=== PATIENT | female | born 1975 | race Caucasian/White ===

== ENCOUNTER → 2016-12-30 | Outpatient (REF) | payer BC | LOC: M LAB REF 13:25 | PROVIDERS: ATTEND Physician Assistant | DX: J11.1 Influenza due to unidentified influenza virus with other respiratory manifestations (principal) ==

== ENCOUNTER 2017-05-20 05:51 | Day surgery (SDC) | payer BC ==
[2017-05-20] VITALS (8 sets, daily range): BP systolic 120–139; BP diastolic 52–63
[~2017-05-20] VITALS: Ht 161.3 cm; Wt 112.0 kg
[~2017-05-20 05:51] MED LIST: CYCL10TA PO; IBUP-1022 PO; IBUP1TAB7 PO; IBUP200C10 PO; MAGN1TAB25 PO; PROZ40CA PO; VITA500055 PO; XANA0.5T PO
[2017-05-20] MEDS ORDERED: LR 1,000 ML IV ONE (06:15)
[2017-05-20] MEDS ORDERED: LR 1,000 ML IV SCH ×2 (06:15→11:00)
[2017-05-20 06:24] LABS: MEAN CORPUSCULAR HEMOGLOBIN 28.2 pg (27.0-33.0); MEAN CORPUSCULAR HGB CONC 33.5 g/dl (32.0-36.5); MEAN CORPUSCULAR VOLUME 84.1 fl (80.0-96.0); WHITE BLOOD COUNT 5.9 K/mm3 (4.0-10.0)
[2017-05-20] MEDS ORDERED: MVI PO (06:24)
[2017-05-20 06:41] LABS: CONTROL LINE HCG INT CTR LINE PRESENT
[2017-05-20] MEDS ORDERED: SCOPOLAMINE 1.5 MG TRANSDERMAL TOP ONE (07:00)
[2017-05-20] MEDS ORDERED: SCOPOLAMINE 1.5 MG TRANSDERMAL As Ordered ONE (07:04)
[2017-05-20] MEDS ORDERED: fentaNYL 100 MCG/2 ML INJECTION (J3010) As Ordered ONE (07:05)
[2017-05-20] MEDS ORDERED: MIDAZOLAM INJ 2 MG/2 ML VIAL (J2250) As Ordered ONE (07:05)
[2017-05-20] MEDS ORDERED: ROCURONIUM BROMIDE 50 MG/5 ML VIAL/SYRINGE As Ordered ONE (07:07)
[2017-05-20] MEDS ORDERED: ONDANSETRON 4MG/2ML VIAL (J2405) As Ordered ONE (07:08)
[2017-05-20] MEDS ORDERED: LIDOCAINE 2% INJ 100 MG/5 ML SDV (FOR ANES.) As Ordered ONE (07:08)
[2017-05-20] MEDS ORDERED: dexameTHASONE 4 MG/ML 1ML VIAL (J1100) As Ordered ONE (07:08)
[2017-05-20] MEDS ORDERED: KETOROLAC 60 MG/2 ML VIAL (J1885) As Ordered ONE (07:08)
[2017-05-20] MEDS ORDERED: PROPOFOL 200 MG/20 ML VIAL As Ordered ONE (07:08)
[2017-05-20] MEDS ORDERED: METHYLENE BLUE 0.5% (5MG/ML) 10 ML AMP (PROVAYBLUE)(Q9968 PER 1MG) As Ordered ONE (07:17)
[2017-05-20] MEDS ORDERED: ePHEDrine SULFATE 25 MG/5 ML(5MG/ML) SYRINGE As Ordered ONE (07:53)
[2017-05-20] MEDS ORDERED: HYDROmorphone HCL 2 MG/ML 1ML VIAL (J1170) As Ordered ONE ×2 (08:05→09:06)
[2017-05-20] MEDS: CETIRIZINE (ZyrTEC) 10 MG TAB PO SCH (09:00)
[2017-05-20] MEDS ORDERED: GLYCOPYRROLATE INJ 0.2 MG/ML 2 ML VIAL As Ordered ONE ×2 (09:08→10:03)
[2017-05-20] MEDS ORDERED: NEOSTIGMINE 1MG/ML 5 ML SYRINGE (J2710) As Ordered ONE (09:08)
[2017-05-20] MEDS ORDERED: diphenhydrAMINE INJ 50MG/ML VIAL (J1200) As Ordered ONE (09:35)
[2017-05-20] MEDS ORDERED: fentaNYL 100 MCG/2 ML INJECTION (J3010) IV PRN (11:00)
[2017-05-20] MEDS ORDERED: METOCLOPRAMIDE INJ 10MG/2ML VIAL (J2765) IV PRN (11:00)
[2017-05-20] MEDS ORDERED: NALBUPHINE HCL 10 MG/ML AMP (J2300) IV PRN (11:00)
[2017-05-20] MEDS ORDERED: NALOXONE INJ 0.4 MG/1 ML VIAL (J2310) IV PRN (11:00)
[2017-05-20] MEDS ORDERED: MEPERIDINE INJ 25 MG/ML VIAL (J2175) IV PRN (11:00)
[2017-05-20] MEDS ORDERED: diphenhydrAMINE INJ 50MG/ML VIAL (J1200) IV PRN (11:00)
[2017-05-20] MEDS ORDERED: ONDANSETRON 4MG/2ML VIAL (J2405) IV PRN (11:00)
[2017-05-20] MEDS ORDERED: NORCO, ANEXSIA 5/325MG TABLET (HYDROcodone/ACETAMINOPHEN) PO PRN (11:00)
[2017-05-20] MEDS ORDERED: MORPHINE 1MG/ML IN 0.9% NACL 100ML IV BAG IV PRN (11:00)
[2017-05-20] MEDS ORDERED: PERCOCET 5MG/325MG TAB PO PRN (11:00)
[2017-05-20] MEDS ORDERED: EPIDURAL/PCA KEYS XX PRN (11:00)
[2017-05-20] MEDS: LR 1,000 ML IV SCH ×2 (15:28→23:21)
[2017-05-20] MEDS: IBUPROFEN 600 MG TAB PO PRN (20:19)
[2017-05-21] VITALS: BP 112/55
[2017-05-21] MEDS: IBUPROFEN 600 MG TAB PO PRN ×2 (02:11→08:45)
[2017-05-21] MEDS: LR 1,000 ML IV SCH ×2 (03:00→08:45)
[2017-05-21 04:00] VITALS: BP 121/59
--- NOTE | 2017-05-21 06:24 | RO ---
DATE OF PROCEDURE: 05/20/2017 PREPROCEDURE DIAGNOSES: Pain, bleeding, postmenstrual dysphoric disorder (PMDD). POSTPROCEDURE DIAGNOSES: Pain, bleeding, premenstrual dysphoric disorder (PMDD). PROCEDURE: Robotic-assisted hysterectomy with bilateral salpingo-oophorectomy. SURGEON: Dr. Susan Camara [employer] CAPTAIN: Janice Garcia. ANESTHESIA: General endotracheal anesthesia. ESTIMATED BLOOD LOSS: BRIEF DESCRIPTION OF PROCEDURE AND FINDINGS: Jennifer was brought to the operating room where sufficient general endotracheal anesthesia was induced. She was prepped, draped and positioned in the usual sterile fashion with a uterine manipulator placed and secured in place with #0 Vicryl suture and a Gama with the ability to backfill placed. Attention was then turned to the abdomen where semilunar incision was made below the umbilicus. Sharp and blunt dissection continued to the level of the rectus fascia. This was secured with #0 Vicryl retention sutures and the peritoneum was entered under direct visualization and then the Joseph cannula placed in an open laparoscopic technique and CO2 insufflation the begun. After adequate CO2 insufflation, the peritoneal cavity was visualized. There were some omental adhesions to the anterior abdominal wall as can be quite common after section, although of course we do not know exactly why these formed but that would be my suspicion. There also was some adhesion of the uterus to the bladder which minimized mobility of the cervix and two left sided and one right sided port were placed. Patient was placed in Trendelenburg and the robot was docked and attention was turned to the robot where some of those anterior adhesions of the omentum were brought down for further access to the uterus. As noted in the some of the operative pictures, there was a little bit of crowding of the intestinal space but we were careful to avoid cory, bladder and ureter in this case, as of course, we are always careful about doing. The left infundibulopelvic ligament was isolated, cauterized with bipolar cautery and transected and left round ligament was isolated, cauterized and transected and the superior aspect of the broad ligament was brought down using the Metzenbaum scissors cold. The bladder was back filled, confirmed that we were well away from it and that it was in the location expected. We then turned our attention to the patient's right side and similarly the infundibulopelvic was isolated. We could clearly identify the course of the ureters bilaterally and isolate the infundibulopelvic, carefully cauterize it and work through the mesentery of the tube and ovary to reach the round ligament which was carefully cauterized and transected and the dissection of the broad continued with the cold scissors and then the uterus rotated and because of the scarring and sort of puckering and V scar bring the bladder down into the uterus, we switched to a 30 degree down scope anteriorly and then back filled the bladder as needed so that we could clearly identify the location of the bladder and then we did need to do some cautery to free some of the dense adhesions over the lower uterine segment anteriorly and then dissect free the bladder flap to complete the dissection of the broad ligament anteriorly. We then cauterized the uterine vasculature bilaterally but before we transected it, we dissected the broad ligament posteriorly as well and then we began the colpotomy posteriorly working just above the insertion of the uterosacrals the maximize postoperative support and to minimize risk of injury to the ureters. We then continued this dissection around, went through the already cauterized uterine vasculature and then worked anteriorly and we could see with back filling the bladder that we had freed it sufficiently to have good access to this tissue and having completed the colpotomy, we delivered the uterus into the vagina to use it to maintain pneumoperitoneum while we then used V-Loc to close the vaginal cuff. There was one pumping vaginal vessel but we were able to control this and we irrigated and suctioned and confirmed good hemostasis, absence of evidence of injury. We then completed the robotic portion of the case removing those robotic instruments allowing the CO2 to escape the abdomen, undocking the robot and then removing the patient from Trendelenburg. Then having removed the trocars, we closed the umbilical wound with the #0 Vicryl retention suture at the fascial layer and then all four wounds, the 8 mm and then the 10 mm umbilical were closed at the skin level with #3-0 Vicryl in a subcuticular stitch. Dry sterile dressings were then applied. ESTIMATED BLOOD LOSS FOR THE PROCEDURE: About 75 mL. FLUID REPLACEMENT: Crystalloid. COMPLICATIONS: None. SPECIMEN: Uterus, ovaries and tubes which were sent to the pathologist. CONDITION AND DISPOSITION: Jennifer tolerated the procedure well and was recovering in the recovery room in good condition.
[2017-05-21 06:55] LABS: MEAN CORPUSCULAR HEMOGLOBIN 27.4 pg (27.0-33.0); MEAN CORPUSCULAR HGB CONC 32.2 g/dl (32.0-36.5); MEAN CORPUSCULAR VOLUME 85.1 fl (80.0-96.0); RED CELL DISTRIBUTION WIDTH 13.1 % (11.5-14.5); WHITE BLOOD COUNT 8.3 K/mm3 (4.0-10.0)
[2017-05-21 08:00] VITALS: BP 126/55
[2017-05-21] MEDS ORDERED: ZYRT10TA2 PO (08:28)
[2017-05-21] MEDS ORDERED: NORC1TAB4 PO (08:28)
[2017-05-21] MEDS: CETIRIZINE (ZyrTEC) 10 MG TAB PO SCH (08:45)
[2017-05-21] MEDS ORDERED: IBUP-1022 PO (09:34)
== END 2017-05-21 10:05 | disposition home or self-care (01) ==
LOC: M SDC 05:51 → M PED 12:00 → M SDC 05-21 10:05
PROVIDERS: ATTEND Obstetrics & Gynecology
DX: F32.81 Premenstrual dysphoric disorder (principal); J45.909 Unspecified asthma, uncomplicated; E73.9 Lactose intolerance, unspecified; I83.009 Varicose veins of unspecified lower extremity with ulcer of unspecified site; K21.9 Gastro-esophageal reflux disease without esophagitis; M12.9 Arthropathy, unspecified; M51.26 Other intervertebral disc displacement, lumbar region; T88.59XD Other complications of anesthesia, subsequent encounter; Z88.2 Allergy status to sulfonamides; Z88.5 Allergy status to narcotic agent; Z79.899 Other long term (current) drug therapy; Z98.51 Tubal ligation status; Z87.09 Personal history of other diseases of the respiratory system; Z87.891 Personal history of nicotine dependence
CPT/HCPCS: 36415; 58571; 84703; 85027; 86850; 86900; 86901; 88307; 96374; J0690; J1100; J1170; J1200; J1885; J2250; J2405; J2710; J3010; Q9968

== ENCOUNTER → 2017-08-20 | Outpatient (CLI) | payer BC ==
[~2017-08-20] MED LIST changes: +MVI PO; +NORC1TAB4 PO; +ZYRT10TA2 PO
[2017-08-20 20:03] LABS: BASO % 0.3 % (0.0-1.0); EOS # 0.2 10^3/uL (0.0-0.50); EOS % 2.3 % (0.0-3.0); IMMATURE GRANULOCYTE % 0.3 % (0-0); LYMPH # 2.3 10^3/uL (1.5-4.5); LYMPH % 34.5 % (24.0-44.0); MEAN CORPUSCULAR HEMOGLOBIN 26.6 pg (27.0-33.0); MEAN CORPUSCULAR HGB CONC 31.9 g/dl (32.0-36.5); MEAN CORPUSCULAR VOLUME 83.6 fl (80.0-96.0); MONO # 0.4 10^3/uL (0.0-0.8); NEUTROPHILS # 3.8 10^3/uL (1.8-7.7); NEUTROPHILS % 56.6 % (36.0-66.0); PLATELET COUNT, AUTOMATED 291 10^3/uL (150-450); RED CELL DISTRIBUTION WIDTH 12.7 % (11.5-14.5); WHITE BLOOD COUNT 6.6 10^3/uL (4.0-10.0)
[2017-08-20 20:16] LABS: LUTEINIZING HORMONE 40.7 mIU/mL
[2017-08-20 20:17] LABS: ESTRADIOL < 19.0 PG/ML; FOLLICLE STIMULATING HORMONE 72.8 mIU/mL
[2017-08-20 20:42] LABS: ALBUMIN 3.9 GM/DL (3.2-5.2); ALBUMIN/GLOBULIN RATIO 1.18 (1.00-1.93); ALKALINE PHOSPHATASE 70 U/L (45-117); ALT/SGPT 21 U/L (12-78); ANION GAP 8 MEQ/L (8-16); AST/SGOT 12 U/L (15-37); BILIRUBIN,TOTAL 0.1 MG/DL (0.2-1.0); BLOOD UREA NITROGEN 10 MG/DL (7-18); CALCIUM LEVEL 8.7 MG/DL (8.5-10.1); CARBON DIOXIDE LEVEL 29 MEQ/L (21-32); CHLORIDE LEVEL 106 MEQ/L (98-107); FERRITIN 26 NG/ML (8-252); GLOMERULAR FILTRATION RATE > 60.0 (>58); GLUCOSE, FASTING 78 MG/DL (70-105); POTASSIUM SERUM 3.9 MEQ/L (3.5-5.1); SODIUM LEVEL 143 MEQ/L (136-145); TOTAL IRON BINDING CAPACITY 391 UG/DL (250-450); TOTAL PROTEIN 7.2 GM/DL (6.4-8.2)
== END ==
LOC: M WUC 16:49
PROVIDERS: ATTEND Physician Assistant Medical
DX: Z13.0 Encounter for screening for diseases of the blood and blood-forming organs and certain disorders involving the immune mechanism (principal); Z13.29 Encounter for screening for other suspected endocrine disorder; N95.1 Menopausal and female climacteric states; E55.9 Vitamin D deficiency, unspecified

== ENCOUNTER → 2017-09-27 | Outpatient (CLI) | payer BC ==
[2017-09-27 13:46] LABS: FREE T4 0.87 NG/DL (0.76-1.46)
[2017-09-29 10:44] LABS: THYROID PEROXIDASE ANTIBODY < 28.0 U/ML (<60.0); VITAMIN B12 LEVEL 410 PG/ML
[2017-09-29 10:45] LABS: FOLATE 14.3 NG/ML
== END ==
LOC: M WUC 10:54
PROVIDERS: ATTEND Physician Assistant Medical
DX: R53.83 Other fatigue (principal)

== ENCOUNTER → 2017-10-06 | Outpatient (CLI) | payer BC | LOC: M WUC 16:12 | PROVIDERS: ATTEND Physician Assistant Medical | DX: R53.83 Other fatigue (principal) ==

== ENCOUNTER → 2018-05-05 | Outpatient (REF) | payer BC ==
[2018-05-05 13:24] LABS: APPEARANCE, URINE HAZY (CLEAR); BACTERIA, URINE AUTO 1+ (NEGATIVE); BILIRUBIN, URINE AUTO NEGATIVE (NEGATIVE); BLOOD, URINE BLOOD NEGATIVE (NEGATIVE); COLOR, URINE YELLOW (YELLOW); GLUCOSE, URINE (UA) AUTO NEGATIVE (NEGATIVE); KETONE, URINE AUTO NEGATIVE (NEGATIVE); LEUKOCYTE ESTERASE, URINE AUTO 3+ (NEGATIVE); MUCUS, URINE SMALL (NEGATIVE); NITRITE, URINE AUTO NEGATIVE (NEGATIVE); PROTEIN, URINE AUTO NEGATIVE (NEGATIVE); RBC, URINE AUTO 9 /HPF (0-3); SPECIFIC GRAVITY URINE AUTO 1.008 (1.002-1.035); SQUAMOUS EPITHELIAL CELL UR AU 4 /HPF (0-6); UROBILINOGEN, URINE AUTO 0.2 mg/dL (0.0-2.0); WBC, URINE AUTO 16 /HPF (0-3)
== END ==
LOC: M LAB REF 13:00
DX: N39.0 Urinary tract infection, site not specified (principal)

== ENCOUNTER 2018-05-06 07:01 | Emergency (ER) | payer BC ==
[2018-05-06] MEDS: KETOROLAC 30 MG/ML VIAL (J1885) IV (07:58)
[2018-05-06 08:06] LABS: BASO % 0.5 % (0.0-1.0); EOS # 0.2 10^3/uL (0.0-0.50); EOS % 1.9 % (0.0-3.0); HEMATOCRIT 37.1 % (36.0-47.0); HEMOGLOBIN 11.9 g/dl (12.0-15.5); IMMATURE GRANULOCYTE % 0.5 % (0-3.0); LYMPH # 1.8 10^3/uL (1.5-4.5); MEAN CORPUSCULAR HEMOGLOBIN 26.9 pg (27.0-33.0); MEAN CORPUSCULAR HGB CONC 32.1 g/dl (32.0-36.5); MEAN CORPUSCULAR VOLUME 83.9 fl (80.0-96.0); MONO # 0.6 10^3/uL (0.0-0.8); MONO % 7.8 % (0.0-5.0); NEUTROPHILS # 5.3 10^3/uL (1.8-7.7); NEUTROPHILS % 66.3 % (36.0-66.0); PLATELET COUNT, AUTOMATED 242 10^3/uL (150-450); RED BLOOD COUNT 4.42 10^6/uL (4.00-5.40); RED CELL DISTRIBUTION WIDTH 12.9 % (11.5-14.5); WHITE BLOOD COUNT 7.9 10^3/uL (4.0-10.0)
[2018-05-06 08:11] LABS: APPEARANCE, URINE CLEAR (CLEAR); BACTERIA, URINE AUTO NEGATIVE (NEGATIVE); BILIRUBIN, URINE AUTO NEGATIVE (NEGATIVE); BLOOD, URINE BLOOD NEGATIVE (NEGATIVE); COLOR, URINE STRAW (YELLOW); GLUCOSE, URINE (UA) AUTO NEGATIVE (NEGATIVE); KETONE, URINE AUTO NEGATIVE (NEGATIVE); LEUKOCYTE ESTERASE, URINE AUTO TRACE (NEGATIVE); MUCUS, URINE SMALL (NEGATIVE); NITRITE, URINE AUTO NEGATIVE (NEGATIVE); PROTEIN, URINE AUTO NEGATIVE (NEGATIVE); RBC, URINE AUTO 0 /HPF (0-3); SPECIFIC GRAVITY URINE AUTO 1.009 (1.002-1.035); SQUAMOUS EPITHELIAL CELL UR AU 1 /HPF (0-6); UROBILINOGEN, URINE AUTO 0.2 mg/dL (0.0-2.0); WBC, URINE AUTO 1 /HPF (0-3)
[2018-05-06 08:36] LABS: ALBUMIN 3.5 GM/DL (3.2-5.2); ALBUMIN/GLOBULIN RATIO 0.88 (1.00-1.93); ALKALINE PHOSPHATASE 79 U/L (45-117); ALT/SGPT 23 U/L (12-78); ANION GAP 5 MEQ/L (8-16); AST/SGOT 15 U/L (7-37); BILIRUBIN,DIRECT < 0.1 MG/DL (0.0-0.2); BILIRUBIN,TOTAL 0.3 MG/DL (0.2-1.0); BLOOD UREA NITROGEN 13 MG/DL (7-18); C REACTIVE PROTEIN QUANTITATIV 4.44 MG/DL (0.00-0.30); CALCIUM LEVEL 8.7 MG/DL (8.5-10.1); CARBON DIOXIDE LEVEL 28 MEQ/L (21-32); CHLORIDE LEVEL 108 MEQ/L (98-107); CREATININE FOR GFR 0.74 MG/DL (0.55-1.30); GLOMERULAR FILTRATION RATE > 60.0 (>58); GLUCOSE, FASTING 96 MG/DL (70-100); LIPASE 98 U/L (73-393); POTASSIUM SERUM 4.2 MEQ/L (3.5-5.1); SODIUM LEVEL 141 MEQ/L (136-145); TOTAL PROTEIN 7.5 GM/DL (6.4-8.2)
== END 2018-05-06 09:28 | disposition home or self-care (01) ==
LOC: M ED 07:01
DX: K57.32 Diverticulitis of large intestine without perforation or abscess without bleeding (principal); F41.9 Anxiety disorder, unspecified; Z88.5 Allergy status to narcotic agent; Z88.2 Allergy status to sulfonamides; Z79.899 Other long term (current) drug therapy; Z79.2 Long term (current) use of antibiotics
CPT/HCPCS: J1885

== ENCOUNTER → 2018-09-29 | Outpatient (CLI) | payer BC | LOC: M WUC 17:18 | DX: M25.572 Pain in left ankle and joints of left foot (principal) | CPT/HCPCS: 73610 ==

== ENCOUNTER → 2019-03-12 | Outpatient (CLI) | payer BC ==
[~2019-03-12] MED LIST changes: +AUGM875T28 PO; +CEPH500C; +CIPR-249 PO; +FLAG500T PO; -IBUP200C10 PO; +IBUP200C25 PO; +KETO10TAB PO; -MAGN1TAB25 PO; +MAGN1TAB26 PO; -NORC1TAB4 PO; +NORC1TAB7 PO; +VENL75TA2 PO; +ZYRT10CA5 PO; -ZYRT10TA2 PO
--- NOTE | 2019-03-16 23:18 | SLEEPHOME ---
DATE OF PROCEDURE: 03/12/2019 ORDERED BY: Usman Bellamy RPA Diagnostic home sleep testing was performed due to concern for the obstructive sleep apnea syndrome. For testing a nocturnal T3 respiratory monitoring device was used. Continuous record was made of pulse, oxygen saturation, airflow, chest, abdominal strain and body position. 10 hours and 59 minutes of data were reviewed. There were 9 hours and 25 minutes marked as time in bed. During the interval marked time in bed, there were 151 respiratory events identified of 10 seconds in duration or greater for a respiratory event index of 16. The events were primarily obstructive. Baseline pulse rate 69 beats per minute, pulse rate ranged 54-98. Baseline saturation 95%, saturations fell as low as 73% and the oxygen desaturation index was 6.9. Testing was performed in both the supine and nonsupine positions. IMPRESSION: Abnormal home sleep testing with repetitive respiratory events and oxygen desaturation to 73% with a respiratory event index of 16 is consistent with the obstructive sleep apnea syndrome. RECOMMENDATIONS: The patient should be encouraged to undergo a formal sleep evaluation and in laboratory pressure titration.
== END ==
LOC: M SLEEP HO 15:07
PROVIDERS: ATTEND Physician Assistant
DX: R06.83 Snoring (principal); R53.83 Other fatigue

== ENCOUNTER → 2019-03-29 | Outpatient (REF) | payer BC | LOC: M LAB REF 17:32 | PROVIDERS: ATTEND Dermatology | DX: D48.5 Neoplasm of uncertain behavior of skin (principal) ==

== ENCOUNTER → 2019-06-24 | Outpatient (CLI) | payer BC ==
--- NOTE | 2019-06-24 15:35 | REP ---
Chest x-ray: Two views. History: Cough and shortness of breath . Comparison study: August 27, 2016 . Findings: The lungs are well inflated and free of infiltrate. The pleural angles are sharp. The heart size is normal. Pulmonary vasculature is not increased. No significant bony abnormality is seen. Impression: Negative chest x-ray. Electronically Signed by Daniele Bowers MD 06/24/2019 03:27 P
== END ==
LOC: M RAD 14:46
PROVIDERS: ATTEND Physician Assistant
DX: R05 Cough (principal); R06.02 Shortness of breath

== ENCOUNTER → 2019-07-24 | Outpatient (CLI) | payer BC ==
[2019-07-24 10:40] LABS: ALBUMIN 3.4 GM/DL (3.2-5.2); ALT/SGPT 24 U/L (12-78); BILIRUBIN,TOTAL 0.2 MG/DL (0.2-1.0); BLOOD UREA NITROGEN 13 MG/DL (7-18); CALCIUM LEVEL 8.7 MG/DL (8.5-10.1); CARBON DIOXIDE LEVEL 29 MEQ/L (21-32); CHLORIDE LEVEL 107 MEQ/L (98-107); CHOLESTEROL LEVEL 215 MG/DL (<200); CHOLESTEROL RISK RATIO 3.981 (<5); FREE T4 0.75 NG/DL (0.76-1.46); GLOMERULAR FILTRATION RATE > 60.0 (>58); GLUCOSE, FASTING 83 MG/DL (70-100); HDL CHOLESTEROL 54 MG/DL (>40); LDL CHOLESTEROL 132 MG/DL (<100); NON-HDL-C 161 MG/DL; SODIUM LEVEL 142 MEQ/L (136-145); TOTAL PROTEIN 6.7 GM/DL (6.4-8.2); TRIGLYCERIDES LEVEL 145 MG/DL (<150)
[2019-07-24 10:50] LABS: HEMOGLOBIN A1c 5.3 %
[2019-07-26 09:56] LABS: TOTAL 25(OH) VITAMIN D 19.6 NG/ML (30.0-100.0)
[2019-07-26 09:58] LABS: PROGESTERONE 0.21 NG/ML
== END ==
LOC: M LAB 09:03
PROVIDERS: ATTEND Physician Assistant
DX: E55.9 Vitamin D deficiency, unspecified (principal)

== ENCOUNTER → 2019-11-15 | Outpatient (REF) | payer BC ==
[2019-11-15 10:57] LABS: APPEARANCE, URINE CLEAR (CLEAR); BACTERIA, URINE AUTO NEGATIVE (NEGATIVE); BILIRUBIN, URINE AUTO NEGATIVE (NEGATIVE); BLOOD, URINE BLOOD NEGATIVE (NEGATIVE); COLOR, URINE YELLOW (YELLOW); GLUCOSE, URINE (UA) AUTO NEGATIVE (NEGATIVE); KETONE, URINE AUTO NEGATIVE (NEGATIVE); LEUKOCYTE ESTERASE, URINE AUTO NEGATIVE (NEGATIVE); MUCUS, URINE SMALL (NEGATIVE); NITRITE, URINE AUTO NEGATIVE (NEGATIVE); PROTEIN, URINE AUTO NEGATIVE (NEGATIVE); RBC, URINE AUTO 1 /HPF (0-3); SPECIFIC GRAVITY URINE AUTO 1.018 (1.002-1.035); SQUAMOUS EPITHELIAL CELL UR AU 4 /HPF (0-6); UROBILINOGEN, URINE AUTO 0.2 mg/dL (0.0-2.0); WBC, URINE AUTO 0 /HPF (0-3)
== END ==
LOC: M LAB REF 10:44
PROVIDERS: ATTEND Obstetrics & Gynecology
DX: N39.0 Urinary tract infection, site not specified (principal)

== ENCOUNTER → 2019-12-01 | Outpatient (CLI) | payer BC ==
[2019-12-02 07:45] LABS: H PYLORI QUALITATIVE IgG NEGATIVE (NEGATIVE)
== END ==
LOC: M LAB 12:21
PROVIDERS: ATTEND Physician Assistant
DX: R19.7 Diarrhea, unspecified (principal)

== ENCOUNTER → 2022-03-26 | Outpatient (REF) | payer BC ==
[~2022-03-26] MED LIST changes: +CYCL-707 PO; -CYCL10TA PO
== END ==
LOC: M LAB REF 21:27
PROVIDERS: ATTEND Physician Assistant Medical
DX: R50.9 Fever, unspecified (principal)

== ENCOUNTER → 2022-05-10 | Outpatient (CLI) | payer BC ==
[2022-05-10 13:10] LABS: BASO % 0.6 % (0.0-1.0); EOS # 0.1 10^3/uL (0.0-0.5); HEMATOCRIT 38.1 % (36.0-47.0); HEMOGLOBIN 12.6 g/dl (12.0-15.5); LYMPH # 1.7 10^3/uL (1.5-5.0); LYMPH % 24.9 % (24.0-44.0); MEAN CORPUSCULAR HEMOGLOBIN 28.1 pg (27.0-33.0); MEAN CORPUSCULAR HGB CONC 33.1 g/dl (32.0-36.5); MEAN CORPUSCULAR VOLUME 84.9 fl (80.0-96.0); MONO # 0.3 10^3/uL (0.0-0.8); MONO % 3.9 % (2.0-8.0); NEUTROPHILS # 4.7 10^3/uL (1.5-8.5); NEUTROPHILS % 68.3 % (36.0-66.0); PLATELET COUNT, AUTOMATED 265 10^3/uL (150-450); RED BLOOD COUNT 4.49 10^6/uL (4.00-5.40); WHITE BLOOD COUNT 6.9 10^3/uL (4.0-10.0)
[2022-05-10 13:48] LABS: ALBUMIN 3.5 GM/DL (3.2-5.2); ALT/SGPT 12 U/L (12-78); BILIRUBIN,TOTAL 0.1 MG/DL (0.2-1.0); BLOOD UREA NITROGEN 13 MG/DL (7-18); CALCIUM LEVEL 9.5 MG/DL (8.5-10.1); CARBON DIOXIDE LEVEL 23 MEQ/L (21-32); CHLORIDE LEVEL 109 MEQ/L (98-107); CREATININE FOR GFR 0.78 MG/DL (0.55-1.30); FREE T4 0.79 NG/DL (0.76-1.46); GLOMERULAR FILTRATION RATE > 60.0 (>58); GLUCOSE, FASTING 126 MG/DL (70-100); SODIUM LEVEL 141 MEQ/L (136-145); TOTAL PROTEIN 7.2 GM/DL (6.4-8.2)
[2022-05-10 14:56] LABS: LUTEINIZING HORMONE 27.1 mIU/mL; TOTAL 25(OH) VITAMIN D 11.1 NG/ML (30.0-100.0)
[2022-05-10 14:57] LABS: ESTRADIOL 24.2 PG/ML; FOLLICLE STIMULATING HORMONE 39.5 mIU/mL
== END ==
LOC: M LAB 12:32
PROVIDERS: ATTEND Physician Assistant
DX: N95.1 Menopausal and female climacteric states (principal); R53.83 Other fatigue

== ENCOUNTER → 2022-08-14 | Outpatient (CLI) | payer BC ==
[2022-08-14 13:48] LABS: BASO % 0.8 % (0.0-1.0); EOS # 0.2 10^3/uL (0.0-0.5); EOS % 3.7 % (0.0-3.0); HEMATOCRIT 40.5 % (36.0-47.0); HEMOGLOBIN 12.7 g/dl (12.0-15.5); LYMPH # 1.6 10^3/uL (1.5-5.0); LYMPH % 31.1 % (24.0-44.0); MEAN CORPUSCULAR HEMOGLOBIN 27.5 pg (27.0-33.0); MEAN CORPUSCULAR HGB CONC 31.4 g/dl (32.0-36.5); MEAN CORPUSCULAR VOLUME 87.7 fl (80.0-96.0); MONO # 0.4 10^3/uL (0.0-0.8); MONO % 6.8 % (2.0-8.0); NEUTROPHILS % 57.4 % (36.0-66.0); PLATELET COUNT, AUTOMATED 250 10^3/uL (150-450); RED BLOOD COUNT 4.62 10^6/uL (4.00-5.40); WHITE BLOOD COUNT 5.2 10^3/uL (4.0-10.0)
[2022-08-14 14:29] LABS: ALBUMIN 3.7 GM/DL (3.2-5.2); ALT/SGPT 16 U/L (12-78); BILIRUBIN,TOTAL 0.1 MG/DL (0.2-1.0); BLOOD UREA NITROGEN 11 MG/DL (7-18); CALCIUM LEVEL 9.3 MG/DL (8.5-10.1); CARBON DIOXIDE LEVEL 25 MEQ/L (21-32); CHLORIDE LEVEL 109 MEQ/L (98-107); CHOLESTEROL LEVEL 230 MG/DL (<200); CHOLESTEROL RISK RATIO 3.333 (<5); CREATININE FOR GFR 0.73 MG/DL (0.55-1.30); FREE T4 0.92 NG/DL (0.76-1.46); GLOMERULAR FILTRATION RATE > 60.0 (>58); GLUCOSE, FASTING 90 MG/DL (70-100); HDL CHOLESTEROL 69 MG/DL (>40); LDL CHOLESTEROL 128 MG/DL (<100); NON-HDL-C 161 MG/DL; POTASSIUM SERUM 4.1 MEQ/L (3.5-5.1); SODIUM LEVEL 141 MEQ/L (136-145); TOTAL PROTEIN 7.5 GM/DL (6.4-8.2); TRIGLYCERIDES LEVEL 166 MG/DL (<150)
[2022-08-14 14:32] LABS: HEMOGLOBIN A1c 5.4 %
[2022-08-14 15:03] LABS: TOTAL 25(OH) VITAMIN D 89.3 NG/ML (30.0-100.0)
== END ==
LOC: M LAB 12:22
PROVIDERS: ATTEND Family Medicine
DX: E55.9 Vitamin D deficiency, unspecified (principal); F41.1 Generalized anxiety disorder; E66.8 Other obesity

== ENCOUNTER → 2022-11-03 | Outpatient (CLI) | payer BC ==
[~2022-11-03] MED LIST changes: +AMPH1CAP16 PO; +ESTR625TA PO; +VENL150C43 PO
== END ==
LOC: M LABSMTC 11:01
PROVIDERS: ATTEND Anesthesiology
DX: Z01.812 Encounter for preprocedural laboratory examination (principal); Z20.822 Contact with and (suspected) exposure to COVID-19

== ENCOUNTER → 2022-11-05 | Outpatient (CLI) | payer BC | LOC: M WHC 12:13 | PROVIDERS: ATTEND Family Medicine | DX: N63.11 Unspecified lump in the right breast, upper outer quadrant (principal) | CPT/HCPCS: 76642; 77065; G0279 ==

== ENCOUNTER 2022-11-07 10:59 | Day surgery (SDC) | payer BC ==
[~2022-11-07] VITALS: Ht 162.6 cm; Wt 103.0 kg
[~2022-11-07 10:59] MED LIST changes: +NS 1,000 ML IV ONE
[2022-11-07] MEDS ORDERED: LIDOCAINE 2% 100MG/5ML SDV (FOR ANES.) As Ordered ONE (11:48)
[2022-11-07] MEDS ORDERED: propofoL 200 MG/20 ML VIAL As Ordered ONE (11:48)
[2022-11-07 12:20] VITALS: BP 116/55
== END 2022-11-07 12:31 | disposition home or self-care (01) ==
LOC: M OPP 10:59
PROVIDERS: ATTEND Surgery
DX: Z12.11 Encounter for screening for malignant neoplasm of colon (principal); K58.9 Irritable bowel syndrome, unspecified; K21.9 Gastro-esophageal reflux disease without esophagitis; M19.90 Unspecified osteoarthritis, unspecified site; F41.9 Anxiety disorder, unspecified; G47.30 Sleep apnea, unspecified; Z88.2 Allergy status to sulfonamides; Z88.5 Allergy status to narcotic agent; Z79.899 Other long term (current) drug therapy

== ENCOUNTER → 2024-07-02 | Outpatient (CLI) | payer BC ==
[~2024-07-02] MED LIST changes: -NS 1,000 ML IV ONE; +PROHANCE 279.3MG/ML 15ML VIAL As Ordered ONE; +PROHANCE 279.3MG/ML 5ML VIAL As Ordered ONE
== END ==
LOC: M RAD 15:43
PROVIDERS: ATTEND Family Medicine
DX: R92.8 Other abnormal and inconclusive findings on diagnostic imaging of breast (principal); R92.323 Mammographic fibroglandular density, bilateral breasts
CPT/HCPCS: A9576; C8908

== ENCOUNTER 2025-08-17 07:36 | Emergency (ER) | payer BC ==
[~2025-08-17] VITALS: Ht 162.6 cm; Wt 105.4 kg
[~2025-08-17 07:36] MED LIST changes: -IBUP-1022 PO; +IBUP600T42 PO; -PROHANCE 279.3MG/ML 15ML VIAL As Ordered ONE; -PROHANCE 279.3MG/ML 5ML VIAL As Ordered ONE
[2025-08-17] MEDS ORDERED: FLUO-290 PO (07:49)
[2025-08-17] MEDS ORDERED: ESTR0.059 TD (07:49)
[2025-08-17] MEDS ORDERED: PROG1CAP8 PO (07:49)
[2025-08-17] MEDS ORDERED: TRAZ-257 PO (07:49)
[2025-08-17 08:07] LABS: BASO # 0.0 10^3/uL (0.0-0.2); BASO % 0.5 % (0.0-1.0); EOS # 0.2 10^3/uL (0.0-0.5); EOS % 2.3 % (0.0-3.0); LYMPH # 1.6 10^3/uL (1.5-5.0); LYMPH % 21.2 % (24.0-44.0); MONO # 0.4 10^3/uL (0.0-0.8); MONO % 5.0 % (2.0-8.0); NEUTROPHILS # 5.2 10^3/uL (1.5-8.5); NEUTROPHILS % 70.6 % (36.0-66.0); PLATELET COUNT, AUTOMATED 291 10^3/uL (150-450)
[2025-08-17 08:16] LABS: KETONE, URINE AUTO RFX NEGATIVE (NEGATIVE); LEUKOCYTE ESTERASE UR AUTO RFX NEGATIVE (NEGATIVE); NITRITE, URINE AUTO RFX NEGATIVE (NEGATIVE); RBC, URINE AUTO RFX 0 /HPF (0-3); SQUAM EPITHELIAL CELL UR AURFX 0 /HPF (0-6); WBC, URINE AUTO RFX 0 /HPF (0-3)
[2025-08-17 08:45] LABS: ALT/SGPT 22 U/L (7.0-40); AST/SGOT 19 U/L (<34); CALCIUM LEVEL 10.3 MG/DL (8.5-10.1); CARBON DIOXIDE LEVEL 29 MMOL/L (20-31); CHLORIDE LEVEL 103 MMOL/L (98-107); CREATININE FOR GFR 0.83 MG/DL (0.55-1.30); GLOMERULAR FILTRATION RATE 85.3 (>51); POTASSIUM SERUM 4.3 MMOL/L (3.5-5.1); SODIUM LEVEL 143 MMOL/L (136-145)
[2025-08-17] MEDS: ACETAMINOPHEN *IV* 1,000 MG in IV 1 EA IV ONE (09:10)
[2025-08-17] MEDS: ONDANSETRON 4MG 2ML VIAL IV ONE (09:23)
[2025-08-17] MEDS ORDERED: ISOVUE-370 76% 100 ML VIAL As Ordered ONE (09:30)
[2025-08-17 09:50] LABS: ESTIMATED AVERAGE GLUCOSE 114.0 MG/DL (60-110)
[2025-08-17 10:41] VITALS: TEMP 98.6
[2025-08-17 11:00] VITALS: BP 134/62; O2SAT 96
== END 2025-08-17 11:18 | disposition home or self-care (01) ==
LOC: M ED 07:36
DX: K52.9 Noninfective gastroenteritis and colitis, unspecified (principal); F41.9 Anxiety disorder, unspecified; F12.10 Cannabis abuse, uncomplicated; F10.10 Alcohol abuse, uncomplicated; Z88.2 Allergy status to sulfonamides; Z88.5 Allergy status to narcotic agent; Z79.899 Other long term (current) drug therapy
CPT/HCPCS: 74177; 80048; 80076; 81001; 83036; 83690; 85025; 96365; 96374; 99284; J0131; J2405; Q9967